=== PATIENT | male | born 1995 | race Caucasian/White ===

== ENCOUNTER 2022-04-24 13:02 | Emergency (ER) | payer BC, SELFPAY ==
[2022-04-24] VITALS (18 sets, daily range): BP systolic 106–154; BP diastolic 64–97; PULSE 68–93; RESP 16–18; TEMP 36.4; O2SAT 100
--- NOTE | ~2022-04-24 | XR_ITS ---
EXAMINATION: XR chest 2V 04/24/2022 13:35 INDICATION: Chest pain and tightness. PROCEDURE: 2 view chest COMPARISON: No prior studies FINDINGS: The lungs are clear. The cardiomediastinal silhouette is within normal limits. There are no pleural effusions. There is no pneumothorax suspected. IMPRESSION: 1: NO ACUTE CARDIOPULMONARY DISEASE. Reviewed, dictated and finalized at location A. ETING ANALYTICS SPECIALIST
--- NOTE | 2022-04-24 13:05 | ECG_ITS ---
Measurements Intervals [place] Rate: 99 P: 69 [place]: 148 QRS: 32 QRSD: 101 T: 40 QT: 352 QTc: 454 Interpretive Statements SINUS RHYTHM WITH SINUS ARRHYTHMIA NO PREVIOUS ECG AVAILABLE FOR COMPARISON Electronically Signed On 04-24-2022 14:45:34 MACHINE SHOP INSTRUCTOR by Osiris Gleason M.D.
--- NOTE | 2022-04-24 13:11 | PC.NURSE ---
Marcelino Brady (friend)- [phone]
[2022-04-24 13:19] LABS: Basophils Absolute Auto 0.1 K/mm3 (0.0-0.1); Basophils Percent Auto 0.6 % (0.2-1.2); Eosinophils Absolute Auto 0.1 K/mm3 (0-0.3); Eosinophils Percent Auto 1.1 % (0-4.4); Hematocrit 46.6 % (42.0-52.0); Immature Granulocyte Absolute 0.05 K/mm3 (0.00-0.031); Immature Granulocyte Percent A 0.6 % (0-0.5); Lymphocytes Absolute Auto 2.65 K/mm3 (0.9-3.2); Lymphocytes Percent Auto 31.3 % (18.3-44.2); Mean Corpuscular HGB Conc 34.3 g/dl (32-36); Mean Corpuscular Hemoglobin 29.2 pg (26-34); Mean Platelet Volume 9.7 fl (7.4-10.4); Monocytes Absolute Auto 0.9 K/mm3 (0.1-0.6); Monocytes Percent Auto 10.2 % (2.6-8.5); Neutrophils Absolute Auto 4.8 K/mm3 (1.3-6.7); Neutrophils Percent Auto 56.2 % (45.5-73.1); Platelet Count Result 244 k/mm3 (150-375); Red Blood Count 5.48 M/mm3 (4.6-6.20); Red Cell Distribution Width 13.7 % (11.5-14.5); White Blood Count 8.5 K/mm3 (4.5-10.0)
[2022-04-24 13:28] LABS: Alanine Aminotransferase 32 U/L (6-50); Albumin Level 5.2 g/dL (3.5-5.1); Alkaline Phosphatase 78 U/L (38-126); Anion Gap 14 mmol/L (8-16); Aspartate Amino Transferase 32 U/L (17-59); Blood Urea Nitrogen 21 mg/dL (9-20); Calcium 9.6 mg/dL (8.4-10.2); Carbon Dioxide 22 mmol/L (22-30); Chloride 104 mmol/L (98-107); Estimated CRCL calculation 124 ml/min; Estimated Glomerular Filt Rate > 60; Glucose 110 mg/dL (65-110); Lipase 65 U/L (23-300); Potassium 3.4 mmol/L (3.4-5.0); Sodium 140 mmol/L (137-145)
[2022-04-24 13:30] LABS: Prothrombin Time 12.7 Seconds (11.1-14.7)
[2022-04-24 13:31] LABS: Partial Thromboplastin Time 32.7 SECONDS (22.3-36.8)
[2022-04-24 13:39] LABS: Troponin I < 0.012 ng/mL (0.000-0.034)
--- NOTE | 2022-04-24 15:32 | ED.CHESTPAIN ---
HPI - Chest Pain General Chief Complaint: Chest Pain Stated Complaint: CP, trouble breathing Time Seen by Provider: 04/24/22 15:29 Source: patient and family Mode of arrival: EMS Limitations: no limitations History of Present Illness HPI narrative: Patient is a 26-year-old male with a recent history of COVID presenting to the emergency department for evaluation of chest pain. Patient reports that he has had intermittent chest pain over the past 3 months, seen previously at [facility] and [facility] with negative work-ups. Patient has been diagnosed with panic disorder/anxiety disorder. Patient states that he was driving today when he began to feel a pressure in his chest with radiation into his neck. Patient reports difficulty swallowing his saliva but no difficulty tolerating oral intake such as fluids or meals. He does report some postprandial discomfort that is burning in nature. Patient denies any current chest pain. He denies cough or shortness of breath. Patient denies abdominal pain. He denies focal weakness or numbness. Patient does not smoke. No family history of sudden cardiac . Patient has no known history of hypertension or hyperlipidemia. He does not currently have a primary care physician. Related Data Allergies Allergy/AdvReac Type Severity Reaction Status Date / Time No Known Allergies Allergy Unknown Unverified 04/24/22 15:48 Review of Systems Review of Systems: CONSTITUTIONAL: Denies fever, chills, or sweats. EYES: Denies visual changes, redness, or discharge. ENT: Denies rhinorrhea, congestion, sore throat, or otalgia. CARDIOVASCULAR: Reports chest pain is now resolved, denies palpitations or edema RESPIRATORY: Denies cough or dyspnea. GASTROINTESTINAL: Denies abdominal pain, nausea, vomiting, or diarrhea. GENITOURINARY: Denies dysuria or hematuria. SKIN: Denies rash or itching. MUSCULOSKELETAL: Denies back pain, joint pain, or myalgia. NEUROLOGIC: Denies headache, numbness, or weakness. [facility] Surgical History Surgical History (Updated 04/24/22 @ 16:04 by Nella Musa MD) Hx of tympanostomy tubes Social History Social History (Updated 04/24/22 @ 16:04 by Nella Musa MD) Smoking status: Never smoker Alcohol intake: never Substance use: never Exam Narrative: GENERAL: Awake, alert, conversant HEAD: Normocephalic, atraumatic. EYES: PERRLA and EOMI. ENT: Nares clear, no rhinorrhea or epistaxis. Mucous membranes moist. NECK: Supple. CHEST: No respiratory distress, breathing even and non labored, chest wall tender to palpation on exam HEART: Regular rate, sinus rhythm ABDOMEN:Non distended, non tender, no epigastric tenderness EXTREMITIES: Normal range of motion. No edema. SKIN: Warm, dry, no rash. NEURO:No focal deficits. Alert and oriented x3 Course Vital Signs Vital signs: Vital Signs Temperature 36.4 C 04/24/22 13:08 Pulse Rate 93 04/24/22 13:08 Respiratory Rate 16 04/24/22 13:08 Blood Pressure 154/86 H 04/24/22 13:08 Pulse Oximetry 100 04/24/22 13:08 Oxygen Delivery Room Air 04/24/22 13:08 Temperature 36.4 C 04/24/22 13:08 Pulse Rate 93 04/24/22 13:08 Respiratory Rate 16 04/24/22 13:08 Blood Pressure 109/72 04/24/22 16:46 Pulse Oximetry 100 04/24/22 16:46 Oxygen Delivery Room Air 04/24/22 15:43 MDM - Chest Pain MDM Narrative Medical decision making narrative: Patient presented for evaluation of atypical chest pain that has been ongoing for a few months. Pain is reproducible on exam which seems more consistent musculoskeletal chest wall pain or costochondritis. Patient's EKG and labs are without significant high risk changes. Cardiac risk factors reviewed. Patient is felt low risk for ACS and reasonable for further risk stratification testing as an outpatient. Pain was not sudden or maximal or onset without tearing or ripping quality. No other signs or symptoms to suggest aortic dissection. A
[2022-04-24] MEDS: KETOROLAC 15 MG/ML VIAL (*BKC) IV PUSH (16:14)
[2022-04-24] MEDS: ACETAMINOPHEN 500 MG TABLET 1000 MG PO (16:14)
[2022-04-24 16:41] LABS: Troponin I < 0.012 ng/mL (0.000-0.034)
[2022-04-24] MEDS: FAMOTIDINE 20 MG/2 ML VIAL IV PUSH (16:47)
== END 2022-04-24 17:10 | disposition home or self-care (01) ==
PROVIDERS: Emergency Medicine; Emergency Provider Emergency Medicine
DX: R07.89 Other chest pain (principal); Z86.16 Personal history of COVID-19
CPT/HCPCS: 36415; 71046; 80053; 83690; 84484; 85025; 85610; 85730; 93005; 96374; 96375; 99284; A9270; J1885

== ENCOUNTER 2022-07-15 00:26 | Day surgery (SDC) | payer BC, SELFPAY ==
[2022-07-03 14:45] VITALS: BMI 26.6
--- NOTE | 2022-07-14 15:52 | P.PNAN_ITS ---
Anes - Initial Pre Proc Eval Procedure: Operation Date: 07/15/22 10:30 Proposed Procedures p Esophagogastroduodenoscopy - Clarke Littlejohn MD Date/Time: 07/14/22 15:52 Surgeon: Clarke Littlejohn MD Pre Op Diagnosis: dysphagia Patient Data Age: 26 Gender: M Height: 1.75 m Weight: 82 kg Allergies Allergy/AdvReac Type Severity Reaction Status Date / Time No Known Allergies Allergy Unknown Verified 07/15/22 09:09 Home Medications Medication Instructions Recorded Confirmed Type omeprazole 40 mg capsule,delayed 40 mg PO DAILY 07/03/22 07/03/22 History release Patient hx anesthesia problems: none Family hx anesthesia problems: none Results Review: All pre-operative results and documents have been reviewed as part of the pre- operative evaluation. [facility] Past Medical History Medical History (Updated 07/14/22 @ 15:53 by Luc Martinez DO) GERD (gastroesophageal reflux disease) Surgical History Surgical History Hx of tympanostomy tubes Social History Social History Smoking status: Never smoker Alcohol intake: never Substance use: current Substance use type: marijuana Other substance usage details: COUPLE TIMES A WEEK EDIBLE AND SMOKE Living arrangements: with family Spiritual care concerns: No Anes - Eval Final PreProcedure Day of Procedure 07/14/22 15:52 Patient weight: overweight Heart: regular rate and rhythm Lungs: clear to auscultation Airway: Mallampati scale class II Neurological: alert and oriented Last oral intake: >/= 8 hours ASA classification: II Emergent: no Anesthetic plan: proceed Anesthesia type and monitoring: general GIVS and standard monitoring Results Review: All pre-operative results and documents have been reviewed as part of the pre- operative evaluation. Informed Consent: The patient's anesthetic plan and its attendant risks and benefits were discussed with the patient/family/POA. Questions were solicited and answers provided to the satisfaction of the patient/family/POA.
[2022-07-15 09:10] VITALS: BP 130/79; PULSE 72; RESP 16; TEMP 36.1; O2SAT 100
[2022-07-15] MEDS: LACTATED RINGERS 1,000 ML 150 ML IV CONT (09:26)
--- NOTE | 2022-07-15 09:59 | WPDHPUPDATE1 ---
History and Physical Update Update Date/Time: 07/15/22 09:59 History and Physical has been reviewed, including an updated exam of the patient. There are NO changes in the patient's condition. Risks, benefits, and alternatives have been discussed and questions answered. Patient agrees to proceed with procedure.
[2022-07-15 10:12] VITALS: BP 102/53; PULSE 80; RESP 25; O2SAT 98
[2022-07-15 10:22] VITALS: BP 112/72; PULSE 75; RESP 15; O2SAT 100
[2022-07-15 10:32] VITALS: BP 111/69; PULSE 66; RESP 15; O2SAT 100
== END 2022-07-15 10:40 | disposition home or self-care (01) ==
PROVIDERS: PCP Nurse Practitioner Family; Visit Provider Internal Medicine Gastroenterology
PROC: 0DJ08ZZ Inspection of Upper Intestinal Tract, Via Natural or Artificial Opening Endoscopic (ICD-10-PCS; CPT 43235; principal; 2022-07-15 10:30)
DX: R13.10 Dysphagia, unspecified (principal); R07.89 Other chest pain; K21.9 Gastro-esophageal reflux disease without esophagitis; F12.90 Cannabis use, unspecified, uncomplicated
CPT/HCPCS: 43239; 88305; J2704; J7120

== ENCOUNTER 2022-09-26 02:47 | Day surgery (SDC) | payer BC, SELFPAY ==
[2022-09-23 12:17] VITALS: BMI 28.5
[2022-09-26 13:05] VITALS: BP 124/78; PULSE 93; RESP 18; TEMP 36.2; O2SAT 100; BMI 27.3
--- NOTE | 2022-09-26 13:10 | WPDHPUPDATE1 ---
History and Physical Update Update Date/Time: 09/26/22 13:10 History and Physical has been reviewed, including an updated exam of the patient. There are NO changes in the patient's condition. Risks, benefits, and alternatives have been discussed and questions answered. Patient agrees to proceed with procedure.
[2022-09-26] MEDS: LACTATED RINGERS 1,000 ML 150 ML IV CONT (13:14)
--- NOTE | 2022-09-26 13:15 | P.PNAN_ITS ---
Anes - Initial Pre Proc Eval Procedure: Operation Date: 09/26/22 14:15 Proposed Procedures p Colonoscopy - Clarke Littlejohn MD Date/Time: 09/26/22 13:15 Surgeon: Clarke Littlejohn MD Pre Op Diagnosis: change in bowel habits, melena Patient Data Age: 27 Gender: M Height: 1.75 m Weight: 83.9 kg Last Vital Signs Temp 97.2 F L 09/26/22 13:05 Pulse 93 09/26/22 13:05 Resp 18 09/26/22 13:05 BP 124/78 09/26/22 13:05 Pulse Ox 100 09/26/22 13:05 O2 Del Method Room Air 09/26/22 13:05 Allergies Allergy/AdvReac Type Severity Reaction Status Date / Time No Known Allergies Allergy Unknown Verified 09/26/22 13:04 Home Medications Medication Instructions Recorded Confirmed Type Bifidobacterium infantis 4 mg 4 mg PO DAILY 09/18/22 09/26/22 History capsule (Align) psyllium husk 0.4 gram capsule 0.4 g PO DAILY 09/18/22 09/26/22 History (Metamucil) Patient hx anesthesia problems: none Family hx anesthesia problems: none Results Review: All pre-operative results and documents have been reviewed as part of the pre- operative evaluation. [facility] Past Medical History Medical History (Updated 09/18/22 @ 10:34 by Clarke Littlejohn MD) Abdominal discomfort Blood in stool Bowel habit changes GERD (gastroesophageal reflux disease) Surgical History Surgical History Hx of tympanostomy tubes Social History Social History Smoking status: Never smoker Alcohol intake: never Substance use: never Substance use type: marijuana Other substance usage details: ONCE A WEEK GUMMIES AND PEN Living arrangements: with family Spiritual care concerns: No Anes - Eval Final PreProcedure Day of Procedure 09/26/22 13:15 Patient weight: normal Heart: regular rate and rhythm Lungs: clear to auscultation Airway: Mallampati scale class II Neurological: alert and oriented Last oral intake: >/= 8 hours ASA classification: II Emergent: no Anesthetic plan: proceed Anesthesia type and monitoring: general GIVS and standard monitoring Results Review: All pre-operative results and documents have been reviewed as part of the pre- operative evaluation. Informed Consent: The patient's anesthetic plan and its attendant risks and benefits were discussed with the patient/family/POA. Questions were solicited and answers provided to the satisfaction of the patient/family/POA.
[2022-09-26 13:28] VITALS: BP 117/50; PULSE 105; RESP 28; O2SAT 98
[2022-09-26 13:38] VITALS: BP 105/80; PULSE 88; RESP 18; O2SAT 100
[2022-09-26 13:48] VITALS: BP 121/81; PULSE 73; RESP 17; O2SAT 100
== END 2022-09-26 13:58 | disposition home or self-care (01) ==
PROVIDERS: PCP Nurse Practitioner Family; Visit Provider Internal Medicine Gastroenterology
PROC: 0DJD8ZZ Inspection of Lower Intestinal Tract, Via Natural or Artificial Opening Endoscopic (ICD-10-PCS; CPT 45378; principal; 2022-09-26 14:15)
DX: K64.8 Other hemorrhoids (principal)
CPT/HCPCS: 45378; J2704; J7120

== ENCOUNTER 2024-07-17 16:57 | Emergency (ER) | payer BC, SELFPAY ==
--- OUTSIDE RECORDS SUMMARY | 2024-07-17 16:59 | XMS_ITS | Clinical Summary ---
Author Organization [facility] Address [address] [place] [address] Care Team Providers Care Converter Operator Name Role Phone Alis Hughes NP Primary Care Provider [phone]- [phone] Allergies No known active allergies Medications atorvastatin (LIPITOR) 20 mg tablet Take 1 tablet (20 mg total) by mouth daily 90 tablet 3 07/31/2023 5 Active Active Problems Problem Noted Date Diagnosed Date Nasal lesion 09/23/2023 Assessment & Plan (09/23/2023 9:09 AM CDT): Will complete course mupirocin ointment. Will also refer to ENT for further evaluation and treatment. Annual physical exam 06/22/2023 Assessment & Plan (06/22/2023 10:30 AM RN PALLIATIVE CARE): Visit preventive in nature. We had long conversation regarding lifestyle recommendations today. Labs reviewed. Class 1 obesity due to exces s calories with serious comorbidity and body mass index (BMI) of 31.0 to 31.9 in adult 06/22/2023 Assessment & Plan (06/22/2023 10:30 AM RN PALLIATIVE CARE): Again long conversation regarding lifestyle recommendations today. Handouts provided. Mixed hyperlipidemia 06/22/2023 Assessment & Plan (09/23/2023 9:09 AM CDT): Improving. Continue with atorvastatin. Will also continue following with cardiology. Assessment & Plan (06/22/2023 10:31 AM RN PALLIATIVE CARE): LDL 172. Going in the wrong direction. Long conversation regarding lifestyle recommendations. Also recommend establishing care with Cardiology due to your young age and elevation of LDL. Discussed starting cholesterol-lowering medication. He is going to really work on dietary changes and exercise 1st. Follow-up in 3 months with fasting lipid panel prior. He is in agreement with plan and states understanding. Abdominal bloating 09/15/2022 Assessment & Plan (09/15/2022 10:34 AM CDT): See discussion above Blood in stool 09/15/2022 Assessment & Plan (09/15/2022 10:35 AM CDT): Single episode of rectal bleeding, blood noted on tissue with wiping. Denies any gross bleeding or black and tarry stools. Mild abdominal cramping/bloating. Patient with overall very poor diet, diet consists of processed foods and fast foods. Referral placed to dietitian to review healthy eating options. Recommended lean meats and increasing fruits and vegetables in diet. Will trial probiotic once daily. Continue Metamucil. Recommended patient follow-up with his shear helper for rectal bleeding and ongoing abdominal pain, we discussed bleeding is likely secondary to hemorrhoid. No abdominal tenderness or abnormal findings on exam. Instructed patient to go to the ER if experiencing recurrent or worsening abdominal pain, vomiting/unable to keep food/ fluids down or if he develops any fevers or continue rectal bleeding. BMI 28.0-28.9,adult 09/15/2022 Assessment & Plan (09/15/2022 10:32 AM CDT): Discussed healthy diet and importance of regular physical activity. Immunizations Immunization Administration Dates Next Due DTaP, Unspecified 10/12/2002 HPV, Quadrivalent 11/10/2013 HPV9 06/10/2016,04/10/2016 Hep A, Ped Unspecified 11/10/2013 Influenza, Quadrivalent, Spl it, Intramuscular 04/10/2016 Influenza, Quadrivalent, Spl it, Preservative Free, Intramuscular 06/19/2022,02/26/2018,05/07/2015,04/27 Influenza, Unspecified 08/23/2023(Deferr ed: Patient Refused),06/22/2023(Deferred: Patient Refused),01/23/2023(Deferred: Patient Refused) Meningococcal ACWY, Unspecified 11/10/2013 Meningococcal MCV4P (Menactra) 12/26/2011 Tdap 12/26/2011 Varicella 12/26/2011 Family History Medical History Relation Name Comments Drug abuse Father ALLYSSA VALDERRAMA Heart attack Maternal Grandfather ANDREW Heart disease Maternal Grandfather ANDREW Hypertension Maternal Grandfather ANDREW Stroke Maternal Grandfather ANDREW Cancer Maternal Grandmother LUMA HERNANDEZ Alcohol abuse Paternal Grandfather PATY HERNANDEZ Asthma Sister 1 Sunshine Cerebral palsy Sister 2 Akoyia Asthma Sister 3 SUNSHINE NEGRO Depression Sister 3 SUNSHINE NEGRO Mental illness Sister 3 SUNSHINE NEGRO Cerebral palsy Sister 4 GREGORIO NEGRO Learning disabilities Sister 4 GREGORIO NEGRO Relation Name Status Comments Father ALLYSSA VALDERRAMA Alive Maternal Grandfather ANDREW Maternal Grandmother LUMA HERNANDEZ Mother Alive Paternal Grandfather PATY HERNANDEZ Sister 1 Sunshine Alive Sister 2 Akoyia Alive Sister 3 SUNSHINE NEGRO Sister 4 GREGORIO NEGRO Social History Tobacco Use Types Packs/Day Years Used Date Smoking Tobacco: Never Smokeless Tobacco: Never Tobacco Cessation:Counseling Given: Not Answered AUDIT-C Answer Date Recorded Q1: How often do you have a drink containing alcohol? Never 06/19/2022 Q2: How many drinks containi ng alcohol do you have on a typical day when you are drinking? Patient does not drink Q3: How often do you have si x or more drinks on one occasion? Never 06/19/2022 PHQ-2 Answer Date Recorded PHQ-2 Total Score (If total score is 3 or more points, staff should administer the PHQ-9) 0 06/22/2023 Personal Safety Answer Date Recorded Getting School Help Needed Not on file 06/12 Sex and Gender Information Value Date Recorded Sex Assigned at Not on file Legal Sex Male 11:11 AM RN PALLIATIVE CARE Gender Identity Male 04/25/2022 12:35 PM RN PALLIATIVE CARE Sexual Orientation Straight 04/25/2022 12 :35 PM RN PALLIATIVE CARE Obstetrics History Last Filed Vital Signs Vital Sign Reading Time Taken Comments Blood Pressure 134/86 03/07/2024 6:22 PM CDT Pulse 94 03/07/2024 6:22 PM CDT Temperature 37.6 C (99.7 F) 03/07/2024 6:22 PM CDT Respiratory Rate 17 03/07/2024 6:22 PM CDT Oxygen Saturation 98% 03/07/2024 6:22 PM CDT Inhaled Oxygen Concentration - - Weight 107 kg (236 lb) 03/07/2024 6:22 PM CDT Height 175.3 cm (5' 9 ) 03/07/2024 6:22 PM CDT Body Mass Index 34.85 03/07/2024 6:22 PM CDT Plan of Treatment Health Maintenance Due Date Last Done Comments Hepatitis C Screening 1997 Varicella Vaccines (2 of 2 - 13+ 2-dose series) 01/23/2012 12/26/2011 Hepatitis B Screening 09/14/2015 HPV Vaccines (3 - Male 3-dose series) 09/02/2016 06/10/2016, 04/10/2016, 11/10/2013 DTaP/Tdap/Td Vaccine (3 - Td or Tdap) 12/25/2021 12/26/2011, 10/12/2002 Covid-19 Vaccine ( - season) 2024 07/31/2020 Influenza Vaccine (#1) 2024 , 02/26/2018, 04/10/2016, Additional history exists Depression Screening 06/22/2024 06/22/2023, 12/17/2022, 09/15/2022, Additional history exists Regular Well Visit/Exam 18-64 06/22/2024 06/22/2023 Pneumococcal vaccine <65 Aged Out No longer eligible based on patient's age to complete this topic [place] Care Teams Converter Operator Relationship Specialty Start Date End Date Alis Hughes NP [address] [place] [address] PCP - General Internal Medicine 07/31/23
--- OUTSIDE RECORDS SUMMARY | 2024-07-17 16:59 | XMS_ITS | Clinical Summary ---
Author Organization [facility] Address [address] [place] [address] Phone Care Team Providers Care Inspector Watch Parts Name Role Phone Alis Hughes APRN, SPEEDY Primary Care Provid er Allergies No known active allergies Medications topiramate (TOPAMAX) 25 MG Tablet 06/04/2016 Active minocycline (MINOCIN, DYNACIN) 100 MG Capsule 06/10/2016 Active ibuprofen (MOTRIN) 800 MG Tablet Take 1 Tab by mouth every 8 hours. 30 Tab 0 07/02/2016 Active famotidine (PEPCID) 20 MG Tablet Take 1 Tablet by mouth 2 times daily. 60 Tablet 10/14/2021 Active Social History Tobacco Use Types Packs/Day Years Used Date Smoking Tobacco: Never Alcohol Use Standard Drinks/Week Comments Never 0 (1 standard drink = 0.6 oz pur e alcohol) Sex and Gender Information Value Date Recorded Sex Assigned at Not on file Legal Sex Male 10:46 PM CDT Gender Identity Not on file Sexual Orientation Not on file Last Filed Vital Signs Vital Sign Reading Time Taken Comments Blood Pressure 140/68 10/07/2023 4:23 AM CDT Pulse 84 10/07/2023 4:23 AM CDT Temperature 37.3 C (99.1 F) 10/07/2023 3:01 AM CDT Respiratory Rate 18 10/07/2023 4:23 AM CDT Oxygen Saturation 98% 10/07/2023 4:23 AM CDT Inhaled Oxygen Concentration - - Weight 99.8 kg (220 lb) 10/07/2023 3:01 AM CDT Height 175.3 cm (5' 9 ) 10/07/2023 3:01 AM CDT Body Mass Index 32.49 10/07/2023 3:01 AM CDT Plan of Treatment Health Maintenance Due Date Last Done Comments Hepatitis C Virus (HCV) Screening 1997 Human Papillomavirus (HPV) Immunization (3 - Male 3-dose series) 09/02/2016 06/10/2016, 04/10/2016, 11/10/2013 Hepatitis B Immunization (2 of 3 - Hep B Twinrix 3-dose series) 11/07/2016 10/10/2016 Influenza Immunization (#1) 01/24/202405/26, 02/26/2018, 10/10/2016, Additional history exists SARS-COV-2 Immunization ( - season) 2024 07/31/2020 Respiratory Syncytial Virus (RSV) Immunization (Adult) (1 - 1-dose 75+ series) 2072 Meningococcal Immunization (ACWY) Completed 10/10/2016, 11/10/2013, 12/26/2011 DTaP/Tdap/Td Immunization Discontinued 2018, 10/10/2016, 12/26/2011, Additional history exists TdaP Immunization Completed 10/21/2018, , 12/26/2011 Pneumococcal Immunization Combined Aged Out No longer eligible based on patient's age to complete this topic Rotavirus Immunization Aged Out No lo nger eligible based on patient's age to complete this topic Insurance [facility] [id number] Care Teams Inspector Watch Parts Relationship Specialty Start Date End Date Alis Hughes APRN, DIRECTOR [place] [address] PCP - General Advanced Practice Nurse 10/07/23
--- OUTSIDE RECORDS SUMMARY | 2024-07-17 16:59 | XMS_ITS | Referral Summary ---
Author Organization [facility] Address [address] [place] [address] Care Team Providers Care Steam Box Hand Name Role Phone Alis Hughes NP Primary Care Provider +1- [phone] Allergies No known active allergies Medications atorvastatin [...] 06/22/2023 Assessment & Plan (06/22/2023 10:30 AM MANAGER TECHNOLOGY): Visit preventive in nature. We had long conversation regarding lifestyle recommendations today. Labs reviewed. Class 1 obesity due to exces s calories with serious comorbidity and body mass index (BMI) of 31.0 to 31.9 in adult 06/22/2023 Assessment & Plan (06/22/2023 10:30 AM MANAGER TECHNOLOGY): Again long conversation regarding lifestyle recommendations today. Handouts provided. Mixed hyperlipidemia 06/22/2023 Assessment & Plan (09/23/2023 9:09 AM CDT): Improving. Continue with atorvastatin. Will also continue following with cardiology. Assessment & Plan (06/22/2023 10:31 AM MANAGER TECHNOLOGY): LDL 172. Going in the wrong direction. [...] Continue Metamucil. Recommended patient follow-up with his partner management consultant for rectal bleeding and ongoing abdominal pain, [...] MCV4P (Menactra) 12/26/2011 Tdap 12/26/2011 Varicella 12/26/2011 Social History Tobacco Use Types Packs/Day Years [...] on file Legal Sex Male 11:11 AM MANAGER TECHNOLOGY Gender Identity Male 04/25/2022 12:35 PM MANAGER TECHNOLOGY Sexual Orientation Straight 04/25/2022 12 :35 PM MANAGER TECHNOLOGY Last Filed Vital Signs Vital Sign Reading [...] 03/07/2024 6:22 PM CDT Plan of Treatment Not on file [place] Care Teams Steam Box Hand Relationship Specialty Start Date [place] [address] PCP - General Internal Medicine 07/31/23
--- OUTSIDE RECORDS SUMMARY | 2024-07-17 16:59 | XMS_ITS | Data Portability ---
Author Organization [place] [facility] [employer], Main Office Address [address] [place] [address] Care Team Providers Care White Washer Piler Name Role Phone LISA SIMS Primary Care Provider Assessment No assessment recorded. Plan of Treatment Reminders Order Date Submit Date Provider Last Modified By Organization Details Last Modified Time Details Appointments None recorded. Lab None recorded. Referral None recorded. Procedures None recorded. Surgeries submucous resection inferior turbinate (SURG) 2023 024 [email or web address] Not available 11:14:07 Imaging None recorded. Medication Orders Flonase Allergy Relief 50 mcg/actuat ion nasal spray,susp ension 2023 024 [facility][id number], [address], [place], [place], [phone], 4 14:48:30 Singulair 10 mg tablet 2023 024 [facility]59417, [address], [place], [place], [id number], 4 14:48:30 Flonase Allergy Relief 50 mcg/actuat ion nasal spray,susp ension 2023 024 [facility]98905, [address], [place], [place], [id number], 4 16:19:34 Singulair 10 mg tablet 2023 024 [facility], [address], [place], [place], [id number], 16:19:34 Patient TargetsNo targets recorded. Patient Instructions Encounter Date Encounter Id Patient Instructions Last Modified By Organization Details Last Modified Time 11/12/2023 [id number] he will return a s needed [email or web address] Not available 11/12/2023 12:29:07 Reason for Referral None Reported. Problems Name Problem SNOMED Code Status Onset Date Resolution Date Notes Provider Name and Address Organization Details Recorded Time Hypertrophy of nasal turbinates 15665798 Active 2023 Sigifredo Hussein MD [email or web address] [employer], [place], [address], [employer] 16:18:45 Postoperative pain 159553005 Active 2023 Sigifredo Hussein MD [email or web address], [employer], [place], [address], [employer] 17:33:50 Problem Notes None recorded. Procedures Surgical History Date Name Laterality Status Provider Name and Address Organization Details Recorded Time SUBMUCOUS RESECTION INFERIOR TURBINATE (SURG) completed [facility] 11/11/2023 11:00:51 Imaging Results None recorded. Procedure Notes None recorded. Medical Equipment None Reported. Allergies No known drug allergies Medications Name Sig Start Date Stop Date Status Note LastModified by Organization Details LastModified Time atorvastati n 20 mg tablet Take 1 tablet every day by oral route. active Not Available Not Available No t Available famotidine 20 mg tablet TAKE 1 TABLET BY MOUTH TWICE DAILY FOR 7 DAYS active Not Available Not Available No t Available hydrocodone 7.5 mg-acetamin ophen 325 mg tablet TAKE 1 TABLET BY MOUTH EVERY 4 TO 6 HOURS 11/11 completed Not Available Not Available Not Available montelukast 10 mg tablet TAKE 1 TABLET BY MOUTH EVERY DAY active Not Available Not Available No t Available mupirocin 2 % topical ointment APPLY TOPICALLY TO THE AFFECTED AREA TWICE DAILY FOR 10 DAYS active Not Available Not Available No t Available fluticasone propionate 50 mcg/actuati on nasal spray,suspe nsion SHAKE LIQUID AND USE 1 SPRAY IN EACH NOSTRIL EVERY DAY active Not Available Not Available No t Available Vitals Date Recorded Body weight Body mass index (BMI) Body height Body temperature Provider Name and Address Organization Details Last Updated DateTime 10/01/2023 031430.56 g 34.1 kg/m2 175.26 cm 97.7 [degF] Nazia Martin RN [facility] 10/01/2023 11:20:25 Date Recorded Body height Body mass index (BMI) Body weight Provider Name and Address Organization Details Last Updated DateTime 10/14/2023 175.26 cm 34.1 kg/m2 418969.84 g Nazia Martin RN [facility] 10/14/2023 10:28:55 Date Recorded Body height Body mass index (BMI) Body weight Body temperature Provider Name and Address Organization Details Last Updated DateTime 11/12/2023 175.26 cm 34.3 kg/m2 129556.43 g 98 [degF] Nazia Martin RN [facility] 11/12/2023 12:19:14 Social History Question Answer Notes LastModified by Organizat ion Details LastModified Time Tobacco Smoking Status Former Smoker AMRIK Quintana, [facility] 09/29/2023 12:21:18 What Is Your Level Of Alcohol Consumption? None [email or web address] Information not available 09/29/2023 Sex: Unknown Functional Status None recorded. Mental Status None recorded. Family History Relationship Description Onset Age of this Age Resolved Age Notes LastModified by Organization Details LastModified Time Father No current problems or disability [email or web address] Not available 09/30 11:19:36 Mother No current problems or disability [email or web address] Not available 09/30 11:19:36 Notes:NO ENT Medical History Condition Response MRSA N BACK INJECTIONS N ALLERGIES/HAYFEVER N LUNG DISEASE/DISORDER N INSOMNIA N HISTORY OF DRUG ABUSE N ESRD N RADIATION / CHEMOTHERAPY N COPD N HIGH CHOLESTEROL / HYPERLIPIDEMIA N HYPERTHYROIDISM N PVD N BLOOD DISEASES N EAR OR HEARING PROBLEMS N HYPOTHYROIDISM N SHINGLES N DEPRESSION (INCLUDING POST ) N BACK / NECK PROBLEMS N HAVE YOU BEEN HOSPITALIZED OR SEEN IN [facility] IN THE PAST YEAR ? N FAILED BACK SYNDROME N STROKE/TIA N POLYCYSTIC OVARIES N OBESITY N HISTORY WITH COMPLICATIONS WITH ANESTHES IA ? N ANEURYSM N Do you have Advance directive? N USE OF BLOOD THINNERS N NO SIGNIFICANT PAST MEDICAL HISTORY N DIABETES, TYPE N VON WILLIBRAND'S DISEASE N PARATHYROID DISEASE N ENT N SEASONAL ALLERGIES N HEARTBURN / REFLUX N POST LAMINECTOMY SYNDROME N HEPATITIS / LIVER DISEASE N SLEEP DISORDER N ARTERIAL INSUFFICIENCY N SEIZURES/EPILEPSY N HEADACHES/MIGRAINES N CHF N PACEMAKER N DIZZINESS N HEART DISEASE/HEART PROBLEMS N AIDS/HIV N NEUROPSYCHOLOGICAL N HYPERTENSION N CANCER: SPECIFY N TOURETTE'S N BLOOD TRANSFUSION N ANESTHESIA COMPLICATIONS N ANEMIA/BLOOD DISORDER N CHRONIC EAR INFECTIONS N ATRIAL FIBRILLATION N AUTOIMMUNE DISEASE N TUBERCULOSIS N Past Encounters Encounter ID Performer Location Encounter Start Date Encounter Closed Date Diagnosis/Indication Diagnosis SNOMED-CT Code Diagnosis ICD10 Code Diagnosis Note [id number] Sigifredo Hussein MD [facility] [place] [address] [place] [address] 10/01/2023 11:02:31 10/02/2023 10:51:34 Nasal congestion 33394617 R09.81 Hypertroph y of nasal turbinates 53261518 J34.3 [id number] Sigifredo Hussein MD [facility] [place] [address] [place] [address] 10/14/2023 10:16:16 10/20/2023 09:24:24 Hypertrophy of nasal turbinates 08941403 J34.3 [id number] Sigifredo Hussein MD [facility] [place] [address] [place] [address] 11/12/2023 12:14:41 11/12/2023 16:03:34 Hypertrophy of nasal turbinates 19191672 J34.3 Health Concerns Section Related Observation LastModified by Organization Detai ls LastModified Time None Recorded Concern Status LastModified by Organization Details LastModified Time None Recorded Advance Directives Directive None Recorded Payers Encounter Date Sequence Insurance Name Policy Number Policy Pimentel Covered Member ID Pimentel Member ID Guarantor Name 10/01/2023 1 [place] [id number] David Curly [id number] David Curly 10/14/2023 1 [place] [id number] David Rawls [id number] David Rawls 11/12/2023 1 [place] [id number] David Rawls [id number] David Rawls Notes Date Note Type Note Provider Name and Address Organization Details Recorded Time 10/01/2023 text/html this patient believe that you discovered bumps inside of his nose. They have been there for several months and he has been having difficulty breathing through his nose particularly at night. Sigifredo Hussein MD [address], [place], [address], [employer] 10/01/2023 16:20:13 10/14/2023 text/html this patient reports that his turbinate hypertrophy has not responded to Flonase and is ready to have turbinate reduction. Sigifredo Hussein MD [address], [place], [address], [employer] 10/14/2023 10:54:15 11/12/2023 text/html he is breathing much better following turbinate reduction Sigifredo Hussein MD [address], [place], [address], [employer] 11/12/2023 12:29:25"
[2024-07-17 17:00] VITALS: BP 151/71; PULSE 119; RESP 20; TEMP 36.6; O2SAT 99
--- NOTE | 2024-07-17 17:12 | ED_ITS ---
HPI - General Adult General Chief complaint: Upper Respiratory Infection Stated complaint: flu like symptoms Source: patient Mode of arrival: ambulatory Limitations: no limitations History of Present Illness HPI narrative: Patient presents for evaluation of nausea vomiting, diarrhea. Symptoms started this morning. He also reports chills, dizziness and generalized body aches. He denies any cough, SOB or sore throat. No recent sick contacts to his knowledge. He has not been able to keep anything down. Related Data Home Medications ?Medication ?Instructions ?Recorded ?Confirmed ?Last Taken ?Type atorvastatin 20 mg tablet mg 07/17/24 Unknown History Allergies Allergy/AdvReac Type Severity Reaction Status Date / Time No Known Allergies Allergy Unknown Verified 07/17/24 17:05 Review of Systems Review of Systems: CONSTITUTIONAL: Reports chills. Denies fever EYES: Denies visual changes, redness, or discharge. ENT: Denies rhinorrhea, congestion, sore throat, or otalgia. CARDIOVASCULAR: Denies chest pain, palpitations, or edema. RESPIRATORY: Denies cough or dyspnea. GASTROINTESTINAL:Reports nausea, vomiting and diarrhea GENITOURINARY: Denies dysuria or hematuria. SKIN: Denies rash or itching. MUSCULOSKELETAL: Reports generalized body aches NEUROLOGIC: Reports dizziness. Denies headache, numbness, or weakness. PSYCHIATRIC: Denies anxiety or depression. [facility] Past Medical History Medical History Blood in stool Abdominal discomfort Bowel habit changes GERD (gastroesophageal reflux disease) Surgical History Surgical History Hx of tympanostomy tubes Family History Family History Mother Family history non-contributory Social History Social History Smoking status: Never smoker Alcohol intake: never Substance use: never Substance use type: marijuana Other substance usage details: ONCE A WEEK GUMMIES AND PEN Living arrangements: with family Spiritual care concerns: No Exam Narrative: GENERAL: Appears acutely ill but nontoxic HEAD: Normocephalic, atraumatic. EYES: PERRLA and EOMI. ENT: Nares clear, no rhinorrhea or epistaxis. Mucous membranes moist. Oropharynx without tonsillar hypertrophy exudate or other lesions. Bilateral TMs pearly lowry nonbulging NECK: Supple. No adenopathy or masses. No carotid bruits or JVD CHEST: Clear to auscultation. No respiratory distress. No wheezes rales or rhonchi HEART: Rate 102. No murmur heard. Normal peripheral pulses. ABDOMEN: Soft, nontender, nondistended, normal active bowel sounds. EXTREMITIES: Normal range of motion. No edema. SKIN: Warm, dry, no rash. NEURO: No focal deficits. Alert and oriented x3. PSYCH: Normal mood and affect. Course Course Emergency Course: This is a 28-year-old male who presented for evaluation nausea, vomiting, diarrhea. His influenza and COVID test were negative but I suspect he has the flu. His heart rate improved on my exam. I recommended he purchase a home flu test and repeat in the next day. Will dc with lomotil and zofran. Lomotil provided as paper script as it would not escribe. I also provided him with script for tamiflu but advised he only start if home flu test positive. Increase hydration. Hori-qoj-[id number] agents for symptom management. Follow up with primary provider. Go to the ER for worsening symptoms. Patient in agreement with plan of care. Level of Care: Express Care Visit Vital Signs Vital signs: Vital Signs Temperature 36.6 C 07/17/24 17:00 Pulse Rate 119 H 07/17/24 17:00 Respiratory Rate 20 07/17/24 17:00 Blood Pressure 151/71 H 07/17/24 17:00 Pulse Oximetry 99 07/17/24 17:00 Oxygen Delivery Room Air 07/17/24 17:00 Temperature 36.6 C 07/17/24 17:00 Pulse Rate 119 H 07/17/24 17:00 Respiratory Rate 20 07/17/24 17:00 Blood Pressure 151/71 H 07/17/24 17:00 Pulse Oximetry 99 07/17/24 17:00 Oxygen Delivery Room Air 07/17/24 17:00 Medical Decision Making Vital Signs Vital Signs: Vital Signs Temperature 36.6 C 07/17/24 17:00 Pulse Rate 119 H 07/17/24 17:00 Respiratory Rate 20 07/17/24 17:00 Blood Pressure 151/71 H 07/17/24 17:00 Pulse Oximetry 99 07/17/24 17:00 Oxygen Delivery Room Air 07/17/24 17:00 Temperature 36.6 C 07/17/24 17:00 Pulse Rate 119 H 07/17/24 17:00 Respiratory Rate 20 07/17/24 17:00 Blood Pressure 151/71 H 07/17/24 17:00 Pulse Oximetry 99 07/17/24 17:00 Oxygen Delivery Room Air 07/17/24 17:00 Lab Data Labs: Lab Results 07/17/24 Range/Units 17:08 POC Influenza A Ag Negative (Negative) POC Influenza B Ag Negative (Negative) POC SARS CoV-2 Ag Negative (Negative) Discharge Plan Discharge Clinical Impression: Acute viral syndrome Patient Disposition: Home, Self-Care Condition: Stable Instructions: Antibiotic Form, Viral Syndrome (ED) Additional Instructions: PLEASE PURCHASE A HOME FLU TEST ONLY START TAMIFLU IF YOUR FLU TEST IS POSITIVE Patient Language: Slovak Prescriptions: New ondansetron 4 mg tablet,disintegrating 4 mg PO Q8H PRN (Reason: nausea and vomiting) Qty: 15 0RF oseltamivir [Tamiflu] 75 mg capsule 75 mg PO Q12H 5 Days Qty: 10 0RF diphenoxylate-atropine [Lomotil] 2.5-0.025 mg tablet 2 tablet PO Q6H PRN (Reason: diarrhea) Qty: 220 0RF No Action atorvastatin 20 mg tablet Follow-up/Referrals: Saul,Alis Kamara PHYSICAL LABORATORY ASSISTANT [Primary Care Provider] - Time of Disposition: 17:47
[2024-07-17 17:26] LABS: EDCOVIDSCREEN Negative (Negative); EDINFLUASCREEN Negative (Negative); EDINFLUBSCREEN Negative (Negative)
== END 2024-07-17 17:51 | disposition home or self-care (01) ==
PROVIDERS: Emergency Provider Nurse Practitioner; PCP Nurse Practitioner Family
DX: B34.9 Viral infection, unspecified (principal); Z20.822 Contact with and (suspected) exposure to COVID-19; K21.9 Gastro-esophageal reflux disease without esophagitis
CPT/HCPCS: 87426; 87804; 99213; G0463

== ENCOUNTER 2024-10-06 19:49 | Emergency (ER) | payer BC, SELFPAY ==
--- OUTSIDE RECORDS SUMMARY | 2024-10-06 19:51 | XMS_ITS | Clinical Summary ---
Author Organization [facility] Address [address] [place] [address] Phone Care Team Providers Care Ends Breakage Clerk Name Role Phone Alis Hughes APRN, SPEEDY [...] patient's age to complete this topic Insurance [facility] [id number] Care Teams Ends Breakage Clerk Relationship Specialty Start Date End Date Alis Hughes APRN, [place] [address] PCP - General Advanced Practice Nurse 10/07/23
--- OUTSIDE RECORDS SUMMARY | 2024-10-06 19:51 | XMS_ITS | Referral Summary ---
Author Organization [facility] Address [address] [place] [address] Care Team Providers Care Tow Motor Mechanic Name Role Phone Alis Hughes EQUITY HOLDER Primary Care Provider [phone]- [phone] Encounters Date Type Department Care Team Description 09/27/2024 9:00 AM CDT Office Visit [facility] [address] [place] [address] Alis Hughes NP Annual physical exam (Primary Dx); Mixed hyperlipidemia; Encounter for hepatitis C screening test for low risk patient; Need for hepatitis B screening test; Class 1 obesity due to excess calories with serious comorbidity and body mass index (BMI) of 34.0 to 34.9 in adult; Elevated ALT measurement 09/19/2024 3:45 PM CDT Lab [facility] [address] [place] [address] Mixed hyperlipidemia; Annual physical exam from Last 3 Months Allergies No known active allergies Medications atorvastatin (LIPITOR) 20 mg tablet Take 1 tablet (20 mg total) by mouth daily 90 tablet 5 01/03/20 25 Active atorvastatin (LIPITOR) 20 mg tablet Take 1 tablet (20 mg total) by mouth daily 90 tablet 3 4 10/05/19 25 Discontinued Active Problems Problem Noted Date Diagnosed Date Elevated ALT measurement 09/27/2024 Assessment & Plan (09/27/2024 9:25 AM CDT): Mildly elevated. Will recheck upon return. Nasal lesion 09/23/2023 Assessment & Plan (09/23/2023 9:09 AM CDT): Will complete course mupirocin ointment. Will also refer to ENT for further evaluation and treatment. Annual physical exam 06/22/2023 Assessment & Plan (09/27/2024 9:25 AM CDT): Visit preventive in nature. We reviewed medications, chronic conditions, risk factors, lifestyle recommendations. Reviewed immunization recommendations. Follow-up in 6 months for chronic conditions and 1 year for annual wellness. - Encourage 150 minutes of exercise weekly. - Advise reducing processed foods, increasing vegetables. - Maintain food diary. Assessment & Plan (06/22/2023 10:30 AM GIFT BASKET PACKER): Visit preventive in nature. We had long conversation regarding lifestyle recommendations today. Labs reviewed. Class 1 obesity due to exces s calories with serious comorbidity and body mass index (BMI) of 31.0 to 31.9 in adult 06/22/2023 Assessment & Plan (06/22/2023 10:30 AM GIFT BASKET PACKER): Again long conversation regarding lifestyle recommendations today. Handouts provided. Mixed hyperlipidemia 06/22/2023 Assessment & Plan (09/27/2024 9:24 AM CDT): Improving with the atorvastatin. Will continue. Reviewed lifestyle recommendations. Can take OTC fish oil. Will continue to monitor. Assessment & Plan (09/23/2023 9:09 AM CDT): Improving. Continue with atorvastatin. Will also continue following with cardiology. Assessment & Plan (06/22/2023 10:31 AM GIFT BASKET PACKER): LDL 172. Going in the wrong direction. [...] Continue Metamucil. 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 and ongoing abdominal pain, [...] it, Preservative Free, Intramuscular 06/19/2022,02/26/2018,05/07/2015,04/27 Influenza, Unspecified 09/27/2024(Deferr ed: Patient Refused),08/23/2023(Deferred: Patient Refused),06/22/2023(Deferred: Patient Refused),01/23/2023(Deferred: Patient Refused) Meningococcal [...] points, staff should administer the PHQ-9) 0 09/27/2024 Sex and Gender Information Value Date Recorded Sex Assigned at Not on file Legal Sex Male 11:11 AM GIFT BASKET PACKER Gender Identity Male 04/25/2022 12:35 PM GIFT BASKET PACKER Sexual Orientation Straight 04/25/2022 12 :35 PM GIFT BASKET PACKER Last Filed Vital Signs Vital Sign Reading Time Taken Comments Blood Pressure 114/72 09/27/2024 8:47 AM CDT Pulse 76 09/27/2024 8:47 AM CDT Temperature 36.6 C (97.9 F) 09/27/2024 8:47 AM CDT Respiratory Rate 16 09/27/2024 8:47 AM CDT Oxygen Saturation 99% 09/27/2024 8:47 AM CDT Inhaled Oxygen Concentration - - Weight 105.5 kg (232 lb 9.6 oz) 09/27/2024 8:47 AM CDT Height 175.3 cm (5' 9 ) 09/27/2024 8:47 AM CDT Body Mass Index 34.35 09/27/2024 8:47 AM CDT Plan of Treatment Not on file Procedures Procedure Name Priority Date/Time Associated Diagnosis Comments EGFR Routine 09/19/2024 3:46 PM CDT Annual physical exam DIFFERENTIAL AUTO Routine 09/19/2024 3:4 6 PM CDT Annual physical exam CBC WITH AUTO DIFFERENTIAL Routine 09/19/2024 3:46 PM CDT Annual physical exam COMPREHENSIVE METABOLIC PANEL Routine 09/19/2024 3:46 PM CDT Annual physical exam LIPID PANEL Routine 09/19/2024 3:46 PM CDT Mixed hyperlipidemia Annual physical exam from Last 3 Months Results * eGFR (09/19/2024 3:46 PM CDT) eGFR >90 >=60 mL/min/1. 73 m2 Comment: Interpretive Data Reference Interval Normal >/= 90 mL/min/1.73m2 Mildly decreased* 60 - 89 mL/min/1.73m2 Mildly to moderately decreased 45 - 59 mL/min/1.73m2 Moderately to severely decreased 30 - 44 mL/min/1.73m2 Severely decreased 15 - 29 mL/min/1.73m2 Kidney Failure < 15 mL/min/1.73m2 *Relative to young adult level Estimated glomerular filtration rate is determined by the 2020 CKD-EPI equation recommended by the National Kidney Foundation (A Unifying Approach to GFR Estimation: Recommendations of the NKF-ASK Task Force on Reassessing the Inclusion of Race in Diagnosing Kidney Disease, JASN 2020). The CKD-EPI equation should not be used for patients with unstable renal function and has not been validated in children and those over 70. Current interpretive data was last reviewed 2021. Testing performed by: [address] [address] Blood 09/19/2024 3:46 PM CDT 09/19/2024 9:33 PM CDT us Alis Hughes NP LAB BLOOD ORDERABLES Final Result [facility] [place]) 1 [facility] Department [place] [address] * (ABNORMAL) Differential, auto (09/19/2024 3:46 PM CDT) Neutrophil abs 6.57(H) 1.50 - 6.50 K/cumm Comment:Testing performed by : [address] [place]., [address] Imm gran abs 0.09 0.00 - 0.10 K/cumm [facility] ([place]) Comment:Testing performed by : [facility], [address] [place] [address]., [address] Lymphocyte abs 2.95 0.80 - 3.30 K/cumm [facility] ([place]) Comment:Testing performed by : [facility], [address] [place] [address], [address] Monocyte abs 0.84(H) 0.20 - 0.80 K/cumm [facility] ([place]) Comment:Testing performed by : [facility], [address] [place] [address], [address] Eosinophil abs 0.29 0.00 - 0.50 K/cumm [facility] ([place]) Comment:Testing performed by : [facility], [address] [place] [address]., [address] Basophil abs 0.07 0.00 - 0.10 K/cumm [facility] ([place]) Comment:Testing performed by : [facility], [address] [place] [address]., [address] Neutrophil pct 60.8 % [facility] ([place]) Comment: Interpretive Data Percent cell count reference ranges are not reported, since discordance with absolute values may lead to misinterpretation of CBC data. Current Interpretive Data was last revised on 2017. Testing performed by: [facility], [address] [place] [address]., [address] Imm gran pct 0.8 % [facility] ([place]) Comment: Interpretive Data Percent cell count reference ranges are not reported, since discordance with absolute values may lead to misinterpretation of CBC data. Current Interpretive Data was last revised on 2017. Testing performed by: [address] [address] Lymphocyte pct 27.3 % [facility] ([place]) Comment: Interpretive Data Percent cell count reference ranges are not reported, since discordance with absolute values may lead to misinterpretation of CBC data. Current Interpretive Data was last revised on 2017. Testing performed by: [address], [address] Monocyte pct 7.8 % [facility] ([place]) Comment: Interpretive Data Percent cell count reference ranges are not reported, since discordance with absolute values may lead to misinterpretation of CBC data. Current Interpretive Data was last revised on 2017. Testing performed by: [address] [address] Eosinophil pct 2.7 % [facility] ([place]) Comment: Interpretive Data Percent cell count reference ranges are not reported, since discordance with absolute values may lead to misinterpretation of CBC data. Current Interpretive Data was last revised on 2017. Testing performed by: [address], [address] Basophil pct 0.6 % [facility] ([place]) Comment: Interpretive Data Percent cell count reference ranges are not reported, since discordance with absolute values may lead to misinterpretation of CBC data. Current Interpretive Data was last revised on 2017. Testing performed by: [address], [address] Blood 09/19/2024 3:46 PM CDT 09/19/2024 9:00 PM CDT us Alis Hughes NP LAB BLOOD ORDERABLES Final Result [facility] ([place]) 1 [facility] Department [place] [address] * (ABNORMAL) CBC with auto differential (09/19/2024 3:46 PM CDT) WBC 10.81(H) 3.80 - 9.90 K/cumm Comment:Testing performed by : [address] [address] Hgb 15.0 13.0 - 17.5 g/dL [facility] ([place]) Comment:Testing performed by : [address], [address] Hct 45.8 38.9 - 50.3 % [facility] ([place]) Comment:Testing performed by : [address], [address] Plt 263 150 - 400 K/cumm [facility] ([place]) Comment:Testing performed by : [facility], [address] [place] [address], [address] MPV 10.1 9.1 - 12.3 fL [facility] ([place]) Comment:Testing performed by : [facility], [address] [place] [address], [address] RBC 5.19 4.30 - 5.80 M/cumm [facility] ([place]) Comment:Testing performed by : [facility], [address] [place] [address], [address] MCV 88.2 81.3 - 96.4 fL [facility] ([place]) Comment:Testing performed by : [address], [address] MCH 28.9 27.1 - 33.3 pg [facility] ([place]) Comment:Testing performed by : [address], [address] MCHC 32.8 32.3 - 35.7 g/dL [facility] ([place]) Comment:Testing performed by : [address], [address] RDW CV 13.7 11.1 - 14.9 % [facility] ([place]) Comment:Testing performed by : [address], [address] RDW SD 44.4 35.7 - 48.1 fL [facility] ([place]) Comment:Testing performed by : [address], [address] NRBC abs 0.00 0.00 - 0.01 K/cumm [facility] ([place]) Comment:Testing performed by : [address], [address] Blood 09/19/2024 3:46 PM CDT 09/19/2024 9:00 PM CDT Alis Hughes NP LAB BLOOD ORDERABLES Final Result [facility] ([place]) 1 [facility] Department [place] [address] * (ABNORMAL) Lipid panel (09/19/2024 3:46 PM CDT) Cholesterol 152 30 - 199 mg/dL Comment: Interpretive Data Ages < or = 19 years Acceptable: <170 mg/dL Borderline high: 170-199 mg/dL High: >or= 200 mg/dL Ages > or = 20 years Desirable: <200 mg/dL Borderline high: 200-239 mg/dL High: >or= 240 mg/dL Literature References: 1. Expert Panel on Integrated Guidelines for Cardiovascular Health and Risk Reduction in Children and Adolescents. Pediatrics 2011;128:S213 2. NCEP Expert Panel. Circulation 2004;110:227 Current Interpretive Data was last revised on 2018. Testing performed by: [facility], [address] [place] [address]., [address] Triglycerides 185(H) <=149 mg/dL [facility] ([place]) Comment: Interpretive Data Ages < or = 9 years Acceptable: <75 mg/dL Borderline high: 75-99 mg/dL High: >or= 100 mg/dL Ages 10 to 20 years Acceptable: <90 mg/dL Borderline high: 90-129 mg/dL High: >or= 130 mg/dL Ages > or = 20 years Desirable: <150 mg/dL Borderline high: 150-199 mg/dL High: 200-499 mg/dL Very high: >or= 499 mg/dL Literature References: 1. Expert Panel on Integrated Guidelines for Cardiovascular Health and Risk Reduction in Children and Adolescents. Pediatrics 2011;128:S213 2. NCEP Expert Panel. Circulation 2004;110:227 Current Interpretive Data was last revised on 2018. Testing performed by: [facility], [address] [place] [address]., [address] HDL 33(L) >=40 mg/dL [facility] ([place]) Comment: Interpretive Data Ages < or = 19 years Acceptable: >45 mg/dL Borderline low: 40-45 mg/dL Low: <40 mg/dL Ages > or = 20 years Desirable: >or= 60 mg/dL Low: <40 mg/dL Literature References: 1. Expert Panel on Integrated Guidelines for Cardiovascular Health and Risk Reduction in Children and Adolescents. Pediatrics 2011;128:S213 2. NCEP Expert Panel. Circulation 2004;110:227 Current Interpretive Data was last revised on 2018. Testing performed by: [facility], [address] [place] [address]., [address] LDL, calculated 87 <=129 mg/dL [facility] ([place]) Comment: Interpretive Data Ages < or = 19 years Acceptable: <110 mg/dL Borderline high: 110-129 mg/dL High: >or= 130 mg/dL Ages > or = 20 years Optimal: <100 mg/dL Near optimal: 100-129 mg/dL Borderline high: 130-159 mg/dL High: >160 mg/dL Calculated using the Fredo LDL-C estimating equation. This equation was implemented on 2024. Prior to this date LDL-C was estimated using the Friedewald equation. Literature References: 1. Expert Panel on Integrated Guidelines for Cardiovascular Health and Risk Reduction in Children and Adolescents. Pediatrics 2011;128:S213 2. NCEP Expert Panel. Circulation 2004;110:227 3. Fredo Santiago et al. RADHA Cardiol. 2019September 22;5(5):540-548. doi: 10.1001/jamacardio.2020.0013 Current Interpretive Data was last revised on 2024. Testing performed by: [facility], [address] [place] [address]., [address] Non-HDL Cholesterol 119 mg/dL [facility] ([place]) Comment: Interpretive Data Ages < or = 19 years Acceptable: <120 mg/dL Borderline high: 120-144 mg/dL High: >145 mg/dL Ages > or = 20 years When triglycerides are >200 mg/dL, Non-HDL cholesterol is a secondary target of therapy with treatment goals that are 30 mg/dL greater than the LDL cholesterol target. Literature References: 1. Expert Panel on Integrated Guidelines for Cardiovascular Health and Risk Reduction in Children and Adolescents. Pediatrics 2011;128:S213 2. NCEP Expert Panel. Circulation 2004;110:227 Current Interpretive Data was last revised on 2018. Testing performed by: [facility], [address] [place] [address]., [address] Chol/HDL ratio 5 [facility] ([place]) Comment:Testing performed by : [facility], [address] [place] [address]., [address] Blood 09/19/2024 3:46 PM CDT 09/19/2024 8:59 PM CDT us Alis Hughes NP LAB BLOOD ORDERABLES Final Result [facility] ([place]) 1 [facility] Department [place] [address] * (ABNORMAL) Comprehensive metabolic panel (09/19/2024 3:46 PM CDT) Sodium 140 135 - 145 mmol/L Comment:Testing performed by : [facility], [address] [place] [address]., [address] Potassium, pl 3.7 3.3 - 4.9 mmol/L [facility] ([place]) Comment:Testing performed by : [facility], [address] [place] [address], [address] Chloride 102 97 - 110 mmol/L [facility] ([place]) Comment:Testing performed by : [address], [address] CO2 26 22 - 32 mmol/L [facility] ([place]) Comment:Testing performed by : [facility], [address] [place] [address], [address] Anion gap 12 2 - 15 mmol/L [facility] ([place]) Comment:Testing performed by : [facility], [address] [place] [address]., [address] BUN 18 6 - 25 mg/dL [facility] ([place]) Comment:Testing performed by : [address], [address] Creatinine 0.87 0.80 - 1.30 mg/dL [facility] ([place]) Comment:Testing performed by : [address], [address] Glucose 86 70 - 199 mg/dL [facility] ([place]) Comment: Interpretive Data Fasting glucose >/= 126 mg/dl is diagnostic for diabetes. Fasting is defined as no caloric intake for at least 8 hours. Fasting glucose between 100 mg/dl to 125 mg/dl is diagnostic of prediabetes. In a patient with classic symptoms of hyperglycemia or hyperglycemic crisis, a random glucose >/= 200 mg/dl is diagnostic for diabetes. In the absence of unequivocal hyperglycemia, results should be confirmed by repeat testing. The classification and Diagnosis of Diabetes Diabetes Care 202; 46: S19-S40. Current interpretive data was last revised 2022. Testing performed by: [facility], [address] [place] [address]., [address] Calcium 9.6 8.5 - 10.3 mg/dL [facility] ([place]) Comment:Testing performed by : [address], [address] Bilirubin, total 0.4 0.1 - 1.2 mg/dL [facility] ([place]) Comment:Testing performed by : [address], [address] Protein, pl 7.7 6.5 - 8.5 g/dL [facility] ([place]) Comment:Testing performed by : [address], [address] Albumin 4.8 3.5 - 5.0 g/dL [facility] ([place]) Comment:Testing performed by : [address], [address] Alk phos 92 40 - 130 Units/L [facility] ([place]) Comment:Testing performed by : [address], [address] ALT 61(H) 7 - 55 Units/L [facility] ([place]) Comment:Testing performed by : [address], [address] AST 39 10 - 50 Units/L [facility] ([place]) Comment:Testing performed by : [address], [address] Blood 09/19/2024 3:46 PM CDT 09/19/2024 8:59 PM CDT Alis Hughes NP LAB BLOOD ORDERABLES Final Result [facility] ([place]) 1 [facility] Department [place] [address] from Last 3 Months Insurance [place] Care Teams Tow Motor Mechanic Relationship Specialty Start Date End [place] [address] PCP - General Internal Medicine 07/31/23
--- OUTSIDE RECORDS SUMMARY | 2024-10-06 19:51 | XMS_ITS | Data Portability ---
Author Organization [facility], Main Office Address [address] [place] [address] Care Team Providers Care Clay Carman Name Role Phone LISA SIMS Primary Care [...] mcg/actuat ion nasal spray,susp ension 2023 024 [id number], [address], [place], [place], [id number], 4 14:48:30 Singulair 10 mg tablet 2023 024 [facility]879, [address], [place], [place], [id number], 4 14:48:30 Flonase Allergy Relief 50 mcg/actuat ion nasal spray,susp ension 2023 024 [facility]77, [address], [place], [place], [id number], 4 16:19:34 Singulair 10 mg tablet 2023 024 [facility]184, [address], [place], [place], [id number], 16:19:34 Patient TargetsNo targets recorded. Patient Instructions Encounter Date Encounter Id Patient Instructions Last Modified By Organization Details Last Modified Time 11/12/2023 [id number] he will return a s needed [email or web address] Not available 11/12/2023 12:29:07 Reason for Referral None Reported. Problems Name Problem SNOMED Code Status Onset Date Resolution Date Notes Provider Name and Address Organization Details Recorded Time Hypertrophy of nasal turbinates 36684314 Active 2023 Sigifredo Hussein MD [address] [employer], [facility], [place], [address], [employer] 16:18:45 Postoperative pain 576360685 Active 2023 Sigifredo Hussein MD [address] [employer], [facility], [place], [address], [employer] 17:33:50 Problem Notes None recorded. Procedures Surgical History Date Name Laterality Status Provider Name and Address Organization Details Recorded Time SUBMUCOUS RESECTION INFERIOR TURBINATE (SURG) completed AMRI[facility] Quint[facility] [employer] 11/11/2023 11:00:51 Imaging Results None recorded. Procedure [...] Address Organization Details Last Updated DateTime 10/01/2023 202966.56 g 34.1 kg/m2 175.26 cm 97.7 [degF] Nazia Martin RN [facility] 10/01/2023 11:20:25 Date Recorded Body height Body mass index (BMI) Body weight Provider Name and Address Organization Details Last Updated DateTime 10/14/2023 175.26 cm 34.1 kg/m2 774947.84 g Nazia Martin RN [facility] 10/14/2023 10:28:55 Date Recorded Body height Body mass index (BMI) Body weight Body temperature Provider Name and Address Organization Details Last Updated DateTime 11/12/2023 175.26 cm 34.3 kg/m2 518791.43 g 98 [degF] Nazia Martin RN [facility] 11/12/2023 12:19:14 Social History None recorded. Functional Status Question Answer Note LastModified by Organization D etails LastModified Time What is your level of alcohol consumption? None [email or web address] Information not available 09/29/2023 Mental Status None recorded. Family History Relationship Description Onset Age of this Age Resolved Age Notes LastModified by Organization Details LastModified Time Father No current problems or disability [email or web address] Not available 09/30 11:19:36 Mother No current problems or disability [email or web address] Not available 09/30 11:19:36 Notes:NO ENT Medical History Condition Response MRSA N ALLERGIES/HAYFEVER N BACK INJECTIONS N LUNG DISEASE/DISORDER N INSOMNIA N HISTORY OF DRUG ABUSE N ESRD N RADIATION / CHEMOTHERAPY N COPD N HIGH CHOLESTEROL / HYPERLIPIDEMIA N HYPERTHYROIDISM N PVD N BLOOD DISEASES N EAR OR HEARING PROBLEMS N HYPOTHYROIDISM N SHINGLES N DEPRESSION (INCLUDING POST ) N BACK / NECK PROBLEMS N HAVE YOU BEEN HOSPITALIZED OR SEEN IN [facility] IN THE PAST YEAR ? N FAILED BACK SYNDROME N STROKE/TIA N POLYCYSTIC OVARIES N OBESITY N ANEURYSM N HISTORY WITH COMPLICATIONS WITH ANESTHES IA ? N Do you have Advance directive? N USE OF BLOOD THINNERS N NO SIGNIFICANT PAST MEDICAL HISTORY N DIABETES, TYPE N VON WILLIBRAND'S DISEASE N PARATHYROID DISEASE N ENT N SEASONAL ALLERGIES N HEARTBURN / REFLUX N POST LAMINECTOMY SYNDROME N HEPATITIS / LIVER DISEASE N SLEEP DISORDER N ARTERIAL INSUFFICIENCY N HEADACHES/MIGRAINES N SEIZURES/EPILEPSY N CHF N PACEMAKER N DIZZINESS N [...] SNOMED-CT Code Diagnosis ICD10 Code Diagnosis Note [id number] Sigifredo Hussein MD [facility] [place] [address] [place] [address] 10/01/2023 11:02:31 10/02/2023 10:51:34 Nasal congestion 59427316 R09.81 Hypertroph y of nasal turbinates 20840743 J34.3 [id number] Sigifredo Hussein MD [facility] [place] [address] [place] [address] 10/14/2023 10:16:16 10/20/2023 09:24:24 Hypertrophy of nasal turbinates 78684579 J34.3 [id number] Sigifredo Hussein MD [facility] [place] [address] [place] [address] 11/12/2023 12:14:41 11/12/2023 16:03:34 Hypertrophy of nasal turbinates 07228216 J34.3 Health Concerns Section Related Observation LastModified by Organization Detai ls LastModified Time None Recorded Concern Status LastModified by Organization Details LastModified Time None Recorded Advance Directives Directive None Recorded Payers Encounter Date Sequence Insurance Name Policy Number Policy Pimentel Covered Member ID Pimentel Member ID Guarantor Name 10/01/2023 1 [place] [id number] David Rawls [id number] David Rawls 10/14/2023 1 [place] [id number] David Rawls [id number] David Rawls 11/12/2023 1 [place] [id number] David Rawls [id number] David Rawls Notes Date Note Type Note Provider Name and Address Organization Details Recorded Time 10/01/2023 text/html this patient believe that you discovered bumps inside of his nose. They have been there for several months and he has been having difficulty breathing through his nose particularly at night. Sigifredo Hussein MD [address], [place], [address], [employer] 10/01/2023 16:20:13 10/14/2023 text/html this patient reports that his turbinate hypertrophy has not responded to Flonase and is ready to have turbinate reduction. Sigifredo Hussein MD [address], [place], [address], [employer] 10/14/2023 10:54:15 11/12/2023 text/html he is breathing much better following turbinate reduction Sigifredo Hussein MD [address], [place], [address], [employer] 11/12/2023 12:29:25
--- OUTSIDE RECORDS SUMMARY | 2024-10-06 19:51 | XMS_ITS | Clinical Summary ---
Author Organization [facility] Address [address] [place] [address] Care Team Providers Care Dust Collector Attendant Name Role Phone Alis Hughes NP Primary Care Provider [phone]- [phone] Allergies No known active allergies Medications atorvastatin [...] diary. Assessment & Plan (06/22/2023 10:30 AM BIT SANDER): Visit preventive in nature. We had long conversation regarding lifestyle recommendations today. Labs reviewed. Class 1 obesity due to exces s calories with serious comorbidity and body mass index (BMI) of 31.0 to 31.9 in adult 06/22/2023 Assessment & Plan (06/22/2023 10:30 AM BIT SANDER): Again long conversation regarding lifestyle recommendations today. Handouts provided. Mixed hyperlipidemia 06/22/2023 Assessment & Plan (09/27/2024 9:24 AM CDT): Improving with the atorvastatin. Will continue. Reviewed lifestyle recommendations. Can take OTC fish oil. Will continue to monitor. Assessment & Plan (09/23/2023 9:09 AM CDT): Improving. Continue with atorvastatin. Will also continue following with cardiology. Assessment & Plan (06/22/2023 10:31 AM BIT SANDER): LDL 172. Going in the wrong direction. [...] Continue Metamucil. 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 Encounters Date Type Department Care Team Description 09/27/2024 9:00 AM CDT Office Visit [facility] [address] [place] [address] Alis Hughes NP Annual physical exam (Primary Dx); Mixed hyperlipidemia; Encounter for hepatitis C screening test for low risk patient; Need for hepatitis B screening test; Class 1 obesity due to excess calories with serious comorbidity and body mass index (BMI) of 34.0 to 34.9 in adult; Elevated ALT measurement 09/19/2024 3:45 PM CDT Lab [facility] [address] [place] [address] Mixed hyperlipidemia; Annual physical exam from Last 3 Months Immunizations Immunization Administration Dates Next Due DTaP, [...] on file Legal Sex Male 11:11 AM BIT SANDER Gender Identity Male 04/25/2022 12:35 PM BIT SANDER Sexual Orientation Straight 04/25/2022 12 :35 PM BIT SANDER Obstetrics History Last Filed Vital Signs Vital [...] 09/27/2024 8:47 AM CDT Plan of Treatment Health Maintenance Due Date Last Done Comments Hepatitis C Screening 1997 Varicella Vaccines (2 of 2 - 13+ 2-dose series) 01/23/2012 12/26/2011 Hepatitis B Screening 09/14/2015 HPV Vaccines (3 - Male 3-dose series) 09/02/2016 06/10/2016, 04/10/2016, 11/10/2013 DTaP/Tdap/Td Vaccine (3 - Td or Tdap) 12/25/2021 12/26/2011, 10/12/2002 Covid-19 Vaccine ( - season) 2024 07/31/2020 Influenza Vaccine (Season Ended) 2025 06/19/2022, 02/26/2018, 04/10/2016, Additional history exists Depression Screening 09/27/2025 09/27/2024, 06/22/2023, 12/17/2022, Additional history exists Regular Well Visit/Exam 18-64 09/27/2025 09/27/2024, 06/22/2023 Pneumococcal vaccine <65 Aged Out No longer eligible based on patient's age to complete this topic Procedures Procedure Name Priority Date/Time Associated Diagnosis [...] was last reviewed 2021. Testing performed by: [address] [id number] Blood 09/19/2024 3:46 PM CDT 09/19/2024 9:33 PM CDT Alis Hughes NP LAB BLOOD ORDERABLES Final Result MARIA A JUNIOR ([place]) 1 [facility] [place] [address] * (ABNORMAL) Differential, auto (09/19/2024 3:46 PM CDT) Pathologist [facility] Neutrophil abs 6.57(H) 1.50 - 6.50 K/cumm Comment:Testing performed by : [facility], [address] [place] [address]., [id number] Imm gran abs 0.09 0.00 - 0.10 K/cumm MARIA A JUNIOR ([place]) Comment:Testing performed by : [facility], [address] [place] [address]., [id number] Lymphocyte abs 2.95 0.80 - 3.30 K/cumm [facility] ([place]) Comment:Testing performed by : [facility], [address] [place] [address]., [id number] Monocyte abs 0.84(H) 0.20 - 0.80 K/cumm [facility] ([place]) Comment:Testing performed by : [facility], [address] [place] [address]., [id number] Eosinophil abs 0.29 0.00 - 0.50 K/cumm [facility] ([place]) Comment:Testing performed by : [facility], [address] [place] [address]., [address] Basophil abs 0.07 0.00 - 0.10 K/cumm [facility] ([place]) Comment:Testing performed by : [facility], [address] [place] [address]., [address] Neutrophil pct 60.8 % [facility] ([place]) Comment: Interpretive Data Percent cell count reference ranges are not reported, since discordance with absolute values may lead to misinterpretation of CBC data. Current Interpretive Data was last revised on 2017. Testing performed by: [facility], [address] [place] [address]., [address] Imm gran pct 0.8 % [facility] ([place]) Comment: Interpretive Data Percent cell count reference ranges are not reported, since discordance with absolute values may lead to misinterpretation of CBC data. Current Interpretive Data was last revised on 2017. Testing performed by: [address] [address] Lymphocyte pct 27.3 % [facility] ([place]) Comment: Interpretive Data Percent cell count reference ranges are not reported, since discordance with absolute values may lead to misinterpretation of CBC data. Current Interpretive Data was last revised on 2017. Testing performed by: [facility], [address] [place] [address]., [address] Monocyte pct 7.8 % [facility] ([place]) Comment: Interpretive Data Percent cell count reference ranges are not reported, since discordance with absolute values may lead to misinterpretation of CBC data. Current Interpretive Data was last revised on 2017. Testing performed by: [address] [address] Eosinophil pct 2.7 % [facility] ([place]) Comment: Interpretive Data Percent cell count reference ranges are not reported, since discordance with absolute values may lead to misinterpretation of CBC data. Current Interpretive Data was last revised on 2017. Testing performed by: [address] [address] Basophil pct 0.6 % [facility] ([place]) Comment: Interpretive Data Percent cell count reference ranges are not reported, since discordance with absolute values may lead to misinterpretation of CBC data. Current Interpretive Data was last revised on 2017. Testing performed by: [address], [address] Blood 09/19/2024 3:46 PM CDT 09/19/2024 9:00 PM CDT Alis Hughes KEY FILER LAB BLOOD ORDERABLES Final Result MARIA A [facility]UNIOR ([place]) 1 [facility] [place] [address] * (ABNORMAL) CBC with auto differential (09/19/2024 3:46 PM CDT) WBC 10.81(H) 3.80 - 9.90 K/cumm Comment:Testing performed by : [address], [address] Hgb 15.0 13.0 - 17.5 g/dL [facility] ([place]) Comment:Testing performed by : [address], [address] Hct 45.8 38.9 - 50.3 % [facility] ([place]) Comment:Testing performed by : [address] [address] Plt 263 150 - 400 K/cumm [facility] A [facility] ([place]) Comment:Testing performed by : [address], [address] MPV 10.1 9.1 - 12.3 fL [facility] ([place]) Comment:Testing performed by : [address], [address] RBC 5.19 4.30 - 5.80 M/cumm [facility] ([place]) Comment:Testing performed by : [facility], [address] [place] [address], [address] MCV 88.2 81.3 - 96.4 fL [facility] ([place]) Comment:Testing performed by : [facility], [address] [place] [address], [address] MCH 28.9 27.1 - 33.3 pg [facility] ([place]) Comment:Testing performed by : [facility], [address] [place] [address], [address] MCHC 32.8 32.3 - 35.7 g/dL [facility] ([place]) Comment:Testing performed by : [facility], [address] [place] [address], [address] RDW CV 13.7 11.1 - 14.9 % [facility] ([place]) Comment:Testing performed by : [facility], [address] [place] [address], [address] RDW SD 44.4 35.7 - 48.1 fL [facility] ([place]) Comment:Testing performed by : [address], [address] NRBC abs 0.00 0.00 - 0.01 K/cumm [facility] ([place]) Comment:Testing performed by : [address], [address] Blood 09/19/2024 3:46 PM CDT 09/19/2024 9:00 PM CDT Alis Hughes KEY FILER LAB BLOOD ORDERABLES Final Result MARIA A JUNIOR ([place]) 1 [facility] Department of Laboratories [place], [place] [id number] * (ABNORMAL) Lipid panel (09/19/2024 3:46 PM [...] last revised on 2018. Testing performed by: [facility], [address] [place] [address]., [address] Triglycerides 185(H) <=149 mg/dL [facility] ([place]) Comment: Interpretive Data [...] last revised on 2018. Testing performed by: [facility], [address] [place] [address]., [address] HDL 33(L) >=40 mg/dL [facility] ([place]) [...] last revised on 2018. Testing performed by: [facility], [address] [place] [address]., [address] LDL, calculated 87 <=129 mg/dL [facility] ([place]) Comment: Interpretive Data [...] 3. Fredo Santiago et al. RADHA Cardiol. 2020 September 22;5(5):540-548. doi: [email or web address] Current Interpretive Data was last revised on 2024. Testing performed by: [address] [address] Non-HDL Cholesterol 119 mg/dL MARIA A JUNIOR [...] last revised on 2018. Testing performed by: [address] [address] Chol/HDL ratio 5 ALOD JUNIOR ([place]) Comment:Testing performed by : [address] [address] Blood 09/19/2024 3:46 PM CDT 09/19/2024 8:59 PM CDT us Alis Hughes NP LAB BLOOD ORDERABLES Final Result MARIA A JUNIOR ([place]) 1 [facility] Department [place] [address] * (ABNORMAL) Comprehensive metabolic panel (09/19/2024 3:46 PM CDT) Sodium 140 135 - 145 mmol/L Comment:Testing performed by : [facility], [address] [place] [address]., [address] Potassium, pl 3.7 3.3 - 4.9 mmol/L [facility] ([place]) Comment:Testing performed by : [facility], [address] [place] [address], [address] Chloride 102 97 - 110 mmol/L [facility] ([place]) Comment:Testing performed by : [facility], [address] [place] [address], [address] CO2 26 22 - 32 mmol/L [facility] ([place]) Comment:Testing performed by : [facility], [address] [place] [address], [address] Anion gap 12 2 - 15 mmol/L [facility] ([place]) Comment:Testing performed by : [address], [address] BUN 18 6 - 25 mg/dL [facility] ([place]) Comment:Testing performed by : [facility], [address] [place] [address], [address] Creatinine 0.87 0.80 - 1.30 mg/dL [facility] ([place]) Comment:Testing performed by : [facility], [address] [place] [address], [address] Glucose 86 70 - 199 mg/dL [facility] ([place]) Comment: Interpretive Data Fasting glucose [...] classification and Diagnosis of Diabetes Diabetes Care 2021; 46: S19-S40. Current interpretive data was last revised 2022. Testing performed by: [facility], [address] [place] [address]., [address] Calcium 9.6 8.5 - 10.3 mg/dL [facility] ([place]) Comment:Testing performed by : [facility], [address] [place] [address], [address] Bilirubin, total 0.4 0.1 - 1.2 mg/dL [facility] ([place]) Comment:Testing performed by : [facility], [address] [place] [address], [address] Protein, pl 7.7 6.5 - 8.5 g/dL [facility] ([place]) Comment:Testing performed by : [facility], [address] [place] [address], [address] Albumin 4.8 3.5 - 5.0 g/dL [facility] ([place]) Comment:Testing performed by : [facility], [address] [place] [address], [address] Alk phos 92 40 - 130 Units/L [facility] ([place]) Comment:Testing performed by : [address], [address] ALT 61(H) 7 - 55 Units/L [facility] ([place]) Comment:Testing performed by : [facility], [address] [place] [address], [address] AST 39 10 - 50 Units/L [facility] ([place]) Comment:Testing performed by : [address], [address] Blood 09/19/2024 3:46 PM CDT 09/19/2024 8:59 PM CDT Alis Hughes NP LAB BLOOD ORDERABLES Final Result [facility] ([place]) 1 [facility] [place] [address] from Last 3 Months Insurance [place] Care Teams Dust Collector Attendant Relationship Specialty Start Date End Date Alis Hughes NP [address] [place] [address] PCP - General Internal Medicine 07/31/23
[2024-10-06 19:56] VITALS: BP 145/81; PULSE 87; RESP 16; TEMP 36.6; O2SAT 100
--- NOTE | 2024-10-06 20:16 | ED_ITS ---
HPI - URI/Sore Throat General Chief Complaint: Upper Respiratory Infection Stated Complaint: cough Source: patient and RN notes reviewed Mode of arrival: ambulatory Limitations: no limitations History of Present Illness HPI Narrative: 29-year-old male presents Express Care complaining of upper respiratory symptoms for approximately 1 week. Patient is started as a cough. Since then the cough has gotten worse and now states he is coughing up yellow sputum and his cough is more persistent. Patient also reports worsening sinus congestion, pressure, sore throat. Patient state he took some Delsym [id number] and Mucinex and shortly after he developed diarrhea. Patient reports he is having brown watery stools. Denies any blood or mucus in the stools. Patient reports having fevers as well. Denies any body aches, chills, sweats, abdominal pain, nausea, vomiting, chest pain, shortness of breath. Related Data Home Medications Medication Instructions Recorded Confirmed Last Taken Type atorvastatin 20 mg tablet mg 07/17/24 Unknown History Allergies Allergy/AdvReac Type Severity Reaction Status Date / Time No Known Allergies Allergy Unknown Verified 10/06/24 19:54 Review of Systems Review of Systems: CONSTITUTIONAL: Denies fever, chills, body aches, or sweats. EYES: Denies visual changes, redness, or discharge. ENT: Positive for congestion, sore throat. Negative for otalgia or rhinorrhea. CARDIOVASCULAR: Denies chest pain, palpitations, or edema. RESPIRATORY: Positive for cough. Negative for dyspnea. GASTROINTESTINAL: Denies abdominal pain, nausea, vomiting, bloody stools. Positive for diarrhea. GENITOURINARY: Denies dysuria or hematuria. SKIN: Denies rash or itching. MUSCULOSKELETAL: Denies back pain, joint pain, or myalgia. NEUROLOGIC: Denies headache, numbness, or weakness. PSYCHIATRIC: Denies anxiety or depression. All other systems reviewed are negative, except as documented in HPI. [facility] Past Medical History Medical History Blood in stool Abdominal discomfort Bowel habit changes GERD (gastroesophageal reflux disease) Surgical History Surgical History Hx of tympanostomy tubes Family History Family History Mother Family history non-contributory Social History Social History Smoking status: Never smoker Alcohol intake: never Substance use: never Substance use type: marijuana Other substance usage details: ONCE A WEEK GUMMIES AND PEN Living arrangements: with family Spiritual care concerns: No Comments At the time of my signature, I reviewed and agree with the nursing past medical, surgical, social, and family history. There is no relevant family history pertinent to the patient complaint. Exam Narrative: GENERAL: This is a well-nourished, well-developed adult, in no apparent distress. They are non ill-appearing, nontoxic appearing. HEAD: normocephalic, atraumatic. EYES: Sclera clear/white. Vision is grossly intact. Conjunctiva normal bilat erally. Extraocular movements intact. EARS: External ears normal, auditory canals erythemic without swelling and without drainage, TMs without erythema, swelling, or perforation. Hearing grossly intact. NOSE: External nose normal with no obvious nasal discharge, nasal turbinates erythematous with mucopurulent discharge. THROAT: Mucous membranes moist, posterior pharynx erythematous without exudate. Uvula is midline. Postnasal drip present. NECK: Neck supple, non-tender without lymphadenopathy, masses or thyromegaly. CARDIOVASCULAR: Regular rate and rhythm without murmurs, gallops, or rubs. RESPIRATORY: Clear to auscultation. Breath sounds equal bilaterally. No wheezes, rales, or rhonchi. ABDOMEN: Abdomen is large, soft, nontender, nondistended. Bowel sounds are present. No guarding, no rebound tenderness. No hepatosplenomegaly, hernia, or palpable masses. SKIN: warm, Dry, intact with no suspicious lesions or rash, good texture and turgor. NEURO: awake, alert, and oriented to person, place and time. There were no obvious focal neurologic abnormalities. EXTREMITIES: No joint tenderness, effusion, or edema noted. BACK: Nontender without deformity. Course Course Emergency Course: Portions of this record may have been created with voice recognition software Level of Care: Express Care Visit Vital Signs Vital signs: Vital Signs Temperature 97.9 F 10/06/24 19:56 Pulse Rate 87 10/06/24 19:56 Respiratory Rate 16 10/06/24 19:56 Blood Pressure 145/81 H 10/06/24 19:56 Pulse Oximetry 100 10/06/24 19:56 Oxygen Delivery Room Air 10/06/24 19:56 Temperature 97.9 F 10/06/24 19:56 Pulse Rate 87 10/06/24 19:56 Respiratory Rate 16 10/06/24 19:56 Blood Pressure 145/81 H 10/06/24 19:56 Pulse Oximetry 100 10/06/24 19:56 Oxygen Delivery Room Air 10/06/24 19:56 MDM - URI/Sore Throat MDM Narrative Medical decision making narrative: Given patient's sudden worsening of symptoms is likely he has developed a bacterial sinusitis. Will treat empirically with Augmentin. Also given benzonatate as needed for cough. Discussed physical exam findings. Advised supportive measures and signs/symptoms to go to the ER. Pt is appropriate for outpt treatment and f/u. Differential Diagnosis Differential diagnosis: Likely upper respiratory infection, sinusitis and viral infection Discharge Plan Discharge Clinical Impression: Sinusitis Qualifiers: Sinusitis location: unspecified location Chronicity: acute Recurrence: non- recurrent Qualified Code(s): J01.90 - Acute sinusitis, unspecified Patient Disposition: Home Condition: Stable Instructions: Antibiotic Form, Sinusitis (ED) Additional Instructions: Take the antibiotics as directed and complete the course even if you start to feel better. You may use a Neti pot saline rinse 3 times a day with lukewarm distilled water Continue to take Tylenol or Motrin for pain. Use a humidifier or vaporizer at night. Take benzonatate as needed for cough Drink plenty of water. 8-10 glasses per day. Use flonase 2 times per day for 5 days then as needed Take mucinex 2 times per day and be sure to take with 8oz of water. Follow up with Primary provider in 3-5 days Please go to the ER if he develops any difficulty breathing, worsening symptoms, or any other concerns Patient Language: New Zealander Prescriptions: New amoxicillin-pot clavulanate 875-125 mg tablet 1 tablet PO Q12H 7 Days Qty: 14 0RF benzonatate 100 mg capsule 100 mg PO TID PRN (Reason: cough) Qty: 20 0RF No Action atorvastatin 20 mg tablet Follow-up/Referrals: Saul,Alis Kamara NP [Primary Care Provider] - Stand Alone Forms: Work/School Release IP Time of Disposition: 20:13
== END 2024-10-06 20:21 | disposition home or self-care (01) ==
PROVIDERS: PCP Nurse Practitioner Family
DX: J01.90 Acute sinusitis, unspecified (principal)
CPT/HCPCS: 99213; G0463